=== PATIENT | male | born 1985 | race Caucasian/White ===

== ENCOUNTER 2018-04-07 20:20 | Emergency (ER) | payer SELFPAY | END 2018-04-07 20:57 | disposition left against medical advice (07) | LOC: ER 20:20 | DX: Z53.21 Procedure and treatment not carried out due to patient leaving prior to being seen by health care provider (principal); R07.81 Pleurodynia ==

== ENCOUNTER 2018-04-09 09:33 | Emergency (ER) | payer SELFPAY ==
--- NOTE | 2018-04-09 10:12 | ER Document Report ---
ED General <TIFFANY ORTIZ - Last Filed: 04/09/18 11:10> - General Mode of Arrival: Ambulatory Information source: Patient TRAVEL OUTSIDE OF THE [place] IN LAST 30 DAYS: No <LINN CASTRO - Last Filed: 04/09/18 16:32> - General Chief Complaint: Rib Pain Stated Complaint: RIB PAIN Time Seen by Provider: 04/09/18 10:02 Notes: Patient is a 32 year old male with epilepsy presents to the emergency department complaining of left rib pain onset 3 days ago. Patient states he was playing soccer 3 nights ago when he collided with a goalie and proceeded to have left rib pain. Patient states he presented to the emergency department 2 days ago complaining of the same pain but left without being seen. He states the pain has significantly worsened this morning and is exacerbated with deep breathing. Patient states he has been taking Ibuprofen 800mg every 4-6 hours. (LINN CASTRO) - Related Data Allergies/Adverse Reactions: amoxicillin [Amoxicillin] Allergy (Severe, Verified 04/09/18 09:37) morphine [Morphine] Allergy (Severe, Verified 04/09/18 09:37) Past Medical History - General Information source: Patient - Social History Smoking Status: Current Every Day Smoker Cigarette use (# per day): Yes - 1/2 PPD Chew tobacco use (# tins/day): No Smoking Education Provided: No Frequency of alcohol use: Rare Family History: CAD, CVA, DM, Hyperlipidemia, Hypertension, Thyroid Disfunction Neurological Medical History: Reports: Hx Seizures Past Surgical History: Reports: Hx Abdominal Surgery - intestinal surgery as child, Hx Kidney (Renal Surgery) - Immunizations Immunizations up to date: Yes Hx Diphtheria, Pertussis, Tetanus Vaccination: Yes <LINN CASTRO - Last Filed: 04/09/18 16:32> Review of Systems - Review of Systems Constitutional: No symptoms reported EENT: No symptoms reported Cardiovascular: No symptoms reported Respiratory: No symptoms reported Gastrointestinal: No symptoms reported Genitourinary: No symptoms reported Male Genitourinary: No symptoms reported Musculoskeletal: See HPI Skin: No symptoms reported Hematologic/Lymphatic: No symptoms reported Neurological/Psychological: No symptoms reported -: Yes All other systems reviewed and negative <LINN CASTRO - Last Filed: 04/09/18 16:32> Physical Exam <TIFFANY ORTIZ - Last Filed: 04/09/18 11:10> <LINN CASTRO - Last Filed: 04/09/18 16:32> - Vital signs Vitals: Temp Pulse Resp BP Pulse Ox 97.7 F 74 18 117/80 97 04/09/18 09:48 04/09/18 09:48 04/09/18 09:48 04/09/18 09:48 04/09/18 09:48 - Notes Notes: GENERAL: Alert, interacts well. No acute distress. HEAD: Normocephalic, atraumatic. EYES: Pupils equal, round, and reactive to light. Extraocular movements intact. ENT: Oral mucosa moist, tongue midline. NECK: Full range of motion. Supple. Trachea midline. LUNGS: Coarse breath sounds, rhonchi when coughing. Left anterior lateral inferior ribs tender to palpation, no bruising, no crepitance. No respiratory distress. HEART: Regular rate and rhythm. No murmurs, gallops, or rubs. ABDOMEN: Soft, non-tender. Non-distended. Bowel sounds present in all 4 quadrants. EXTREMITIES: Moves all 4 extremities spontaneously. NEUROLOGICAL: Alert and oriented x3. Normal speech. PSYCH: Normal affect, normal mood. SKIN: Warm, dry, normal turgor. No rashes or lesions noted. (LINN CASTRO) Course - Diagnostic Test Radiology reviewed: Image reviewed, Reports reviewed - Left rib films do not show fractures or pulmonary issues. <TIFFANY ORTIZ - Last Filed: 04/09/18 11:10> - Vital Signs Vital signs: Temp Pulse Resp BP Pulse Ox 97.4 F 58 L 17 110/68 98 04/09/18 11:30 04/09/18 11:30 04/09/18 11:30 04/09/18 11:30 04/09/18 11:30 Discharge <TIFFANY ORTIZ - Last Filed: 04/09/18 11:10> <LINN CASTRO - Last Filed: 04/09/18 16:32> - Discharge Clinical Impression: Contusion of rib on left side Qualifiers: Encounter type: initial encounter Qualified Code(s): S20.212A - Contusion of left front wall of thorax, initial encounter Condition: Stable Disposition: HOME, SELF-CARE Additional Instructions: Rib Injuries: You have been diagnosed as having bruised ribs. Bruised ribs and fractured ribs are treated in the same way. It will usually take four to six weeks for these injured ribs to heal. You should cough or take a deep breath at least every hour or two to prevent lung complications. You should not engage in any strenuous physical activity until released by your physician. The usual rule is "if it hurts, don't do it." You should call your physician or return at once if any of the following occur: (1) Fever or chills. (2) Persistent cough, coughing up blood, or shortness of breath. (3) Increasing pain. (4) Weakness, lightheadedness, or fainting. Take ibuprofen 800 mg with food every 8 hours. Moist heat or ice packs to the painful chest wall may help with some of your discomfort. Take the pain medication as prescribed at bedtime to help with sleep. You will be uncomfortable during the day, this is part of the healing process after a rib injury. Try to avoid activities that make the ribs hurt more. You may return to work when you are able to do the required activities without significant pain or discomfort. RETURN TO THE EMERGENCY ROOM IF ANY NEW OR WORSENING SYMPTOMS. Prescriptions: Oxycodone HCl/Acetaminophen [Percocet 5-325 mg Tablet] 1 - 2 tab PO QHS PRN #10 tablet PRN Reason: For Pain Scribe Attestation: 04/09/18 10:27 I personally performed the services described in the documentation, reviewed and edited the documentation which was dictated to the scribe in my presence, and it accurately records my words and actions. (TIFFANY ORTIZ) Scribe Documentation - Scribe Written by Darío:: Darío Monsivais, 04/09/2018 10:24 acting as scribe for :: Jarek <LINN CASTRO - Last Filed: 04/09/18 16:32>
--- NOTE | 2018-04-09 11:07 | RADIOLOGY REPORT (SQ) ---
EXAM DESCRIPTION: RIBS LEFT W/PA CHEST COMPLETED DATE/TIME: 04/09/2018 10:50 am REASON FOR STUDY: Left rib injury COMPARISON: Chest x-ray dated 10/19/2015 TECHNIQUE: Frontal view of the chest and additional views of the left ribs acquired. NUMBER OF VIEWS: Five view. LIMITATIONS: None. FINDINGS: FRONTAL CXR: No pneumothorax. No pleural effusion. No atelectasis or infiltrates. RIBS: No displaced rib fractures. No lytic or blastic bony lesions. OTHER: No other significant finding. IMPRESSION: NO PNEUMOTHORAX. NO DISPLACED RIB FRACTURES. COMMENT: SITE OF TRAUMA/COMPLAINT MARKED/STAMP COMPLETED: No TECHNICAL DOCUMENTATION: JOB ID: [id number] [employer]- All Rights Reserved Reading location - IP/workstation name: [email or web address]
[2018-04-09 11:33] VITALS: BP 110/68
== END 2018-04-09 11:37 | disposition home or self-care (01) ==
LOC: ER 09:33
DX: S20.212A Contusion of left front wall of thorax, initial encounter (principal); R07.81 Pleurodynia; W51.XXXA Accidental striking against or bumped into by another person, initial encounter; Y93.66 Activity, soccer; F17.210 Nicotine dependence, cigarettes, uncomplicated; R09.89 Other specified symptoms and signs involving the circulatory and respiratory systems; Z88.0 Allergy status to penicillin; Z88.5 Allergy status to narcotic agent
CPT/HCPCS: 99283